=== PATIENT | male | born 1975 | race Caucasian/White ===

== ENCOUNTER 2018-07-04 06:12 | Inpatient (IN) ==
[2018-06-29 16:36] LABS: Basophils # (Auto) 0 K/mcL (0.0-0.3); Basophils % (Auto) 0.4 % (0.0-2.0); Eosinophils # (Auto) 0.2 K/mcL (0.0-0.7); Eosinophils % (Auto) 2.6 % (0.0-7.0); Granulocytes % (Auto) 55.7 % (38.0-78.0); Lymphocytes # (Auto) 2.7 K/mcL (1.5-4.8); Lymphocytes % (Auto) 32.2 % (15.5-49.0); Mean Cell Volume 88.1 fL (80.0-100.0); Mean Corpuscular HGB Conc 32.9 g/dL (31.0-36.0); Monocytes # (Auto) 0.8 K/mcL (0.1-0.9); Monocytes % (Auto) 9.1 % (1.0-12.0); Platelet Count 435 K/mcL (140-440); RBC 5.08 M/mcL (4.50-5.90); Red Cell Distribution Width 13.4 % (11.5-14.5)
[2018-06-29 16:46] LABS: Blood Urea Nitrogen 18 mg/dl (6-20)
[2018-06-29 17:09] LABS: Appearance,Urine CLEAR; Bilirubin,Urine NEG (NEG); Color,Urine YELLOW; Glucose,Urine (UA) NEGATIVE (NEG); Leukocyte Esterase,Urine NEG /uL (NEG); Protein,Urine NEG (NEG); Specific Gravity,Urine 1.019 (1.000-1.035); Urine Blood NEG mg/dL (<0.03); Urobilinogen,Urine NEG (NEG)
[2018-07-04] MEDS ORDERED: CELECOXIB 200 MG CAPSULE PO SCH (07:00)
[2018-07-04] MEDS ORDERED: oxyCODONE 10 MG TAB.ER.12H PO SCH (07:00)
[2018-07-04] MEDS ORDERED: ceFAZolin 2 GM in DEXTROSE 5% IN WATER 50 ML IV SCH (07:00)
[2018-07-04] MEDS ORDERED: PREGABALIN 75 MG CAPSULE PO SCH (07:00)
[2018-07-04] MEDS ORDERED: GENTAMICIN SULFATE 800 MG/20 ML VIAL IR ONE (07:21)
[2018-07-04] MEDS ORDERED: DEXAMETHASONE 10 MG/ML VIAL IV ONE (09:30)
[2018-07-04] MEDS ORDERED: fentaNYL 100 MCG/2 ML VIAL IV ONE ×2 (09:30→14:00)
[2018-07-04] MEDS ORDERED: KETAMINE 100 MG/ML ML IV ONE (09:30)
[2018-07-04] MEDS ORDERED: LIDOCAINE HCL/PF 100 MG/5 ML SYRINGE IV ONE (09:30)
[2018-07-04] MEDS ORDERED: TRANEXAMIC ACID 1,000 MG/10 ML VIAL IV ONE (09:30)
[2018-07-04] MEDS ORDERED: ONDANSETRON 4 MG/2 ML VIAL IV ONE (09:30)
[2018-07-04] MEDS ORDERED: PHENYLEPHRINE 10 MG/ML VIAL IV ONE (09:30)
[2018-07-04] MEDS ORDERED: GLYCOPYRROLATE 0.2 MG/ML VIAL IV ONE (09:30)
[2018-07-04] MEDS ORDERED: VASOPRESSIN 20 UNIT/ML VIAL IV ONE (09:30)
[2018-07-04] MEDS ORDERED: PROPOFOL 200 MG/20 ML VIAL IV ONE (09:30)
[2018-07-04] MEDS ORDERED: MIDAZOLAM 5 MG/5 ML VIAL IV ONE (09:30)
[2018-07-04] MEDS ORDERED: TRANEXAMIC ACID 1,000 MG/10 ML VIAL IV SCH (13:08)
[2018-07-04] MEDS ORDERED: ONDANSETRON 4 MG ODT TABLET SL PRN (13:08)
[2018-07-04] MEDS ORDERED: BISACODYL 10 MG SUPP.RECT PR PRN (13:08)
[2018-07-04] MEDS ORDERED: MAGNESIUM HYDROXIDE 30 ML ORAL.SUSP PO PRN (13:08)
[2018-07-04] MEDS ORDERED: HYDROcodone/APAP 10/325MG TABLET PO PRN (13:08)
[2018-07-04] MEDS ORDERED: FLEETS ADULT ENEMA PR PRN (13:08)
[2018-07-04] MEDS ORDERED: POLYETHYLENE GLYCOL 3350 17 GM PACKET PO PRN (13:08)
[2018-07-04] MEDS ORDERED: BENZOCAINE/MENTHOL 1 LOZENGE PO PRN ×2 (13:08→13:33)
[2018-07-04] MEDS ORDERED: ONDANSETRON 4 MG/2 ML VIAL IV PRN ×2 (13:08→13:33)
[2018-07-04] MEDS ORDERED: ACETAMINOPHEN 325 MG TABLET PO PRN (13:08)
--- NOTE | 2018-07-04 13:08 | Brief Operative Note ---
Date of procedure: 07/04/18 Pre-op diagnosis: left hip osteoarthritis s/p osteotomy for perthes Post-op diagnosis: same Procedure: left total hip arthroplasty, osteotomy, hardware removal Grafts/Implants: Yes Anesthesia: spinal Complications: none Surgeon: Kilo Figueroa Clip Loading Machine Feeder: Marcella Estrada Estimated blood loss (cc): 200 Specimens Removed/Pathology: none sent Condition: stable Disposition: PACU
[2018-07-04] MEDS ORDERED: PROMETHAZINE 25 MG/ML VIAL IV PRN (13:33)
[2018-07-04] MEDS ORDERED: ACETAMINOPHEN 1,000 MG/100 ML BOTTLE IV ONE (13:33)
[2018-07-04] MEDS ORDERED: METHOCARBAMOL 1,000 MG/10 ML VIAL IV PRN (13:33)
[2018-07-04] MEDS ORDERED: FLUMAZENIL 0.1 MG/ML ML IV PRN (13:33)
[2018-07-04] MEDS ORDERED: NALOXONE HCL 0.4 MG/ML VIAL IV PRN (13:33)
[2018-07-04] MEDS ORDERED: IPRATROPIUM/ALBUTEROL 3 ML AMPUL.NEB NEB PRN (13:33)
[2018-07-04] MEDS ORDERED: MEPERIDINE 50 MG/ML INJECTION IM PRN (13:33)
[2018-07-04] MEDS ORDERED: KETOROLAC 30 MG/ML VIAL IV PRN (13:33)
[2018-07-04] MEDS ORDERED: LACTATED RINGERS 250 ML IV PRN (13:33)
[2018-07-04] MEDS ORDERED: HYDROmorphone 2 MG/ML VIAL IV PRN (13:33)
[2018-07-04] MEDS ORDERED: PROMETHAZINE 25 MG/ML VIAL IM PRN (13:33)
[2018-07-04] MEDS ORDERED: MEPERIDINE 25 MG/ML SYRINGE IV PRN (13:33)
[2018-07-04] MEDS ORDERED: LACTATED RINGERS 1,000 ML IV SCH (13:45)
[2018-07-04] MEDS: fentaNYL 100 MCG/2 ML VIAL IV PRN ×4 (13:59→14:08)
[2018-07-04] MEDS: 0.9 % SODIUM CHLORIDE 10 ML SYRINGE IV SCH ×2 (15:04→22:32)
[2018-07-04] MEDS: 0.9 % SODIUM CHLORIDE 1,000 ML IV SCH ×2 (15:45→23:20)
--- NOTE | 2018-07-04 16:08 | XRay Report ---
CLINICAL INFORMATION: Post-Op Total Hip COMPARISON: Preoperative films unavailable. FINDINGS: Left total hip prostheses is anatomically aligned. A hooked sideplate seen over the greater trochanter and lateral cortex of the upper femoral diaphysis which is supported by cerclage wires. Older right total hip prostheses in anatomic alignment. IMPRESSION: Postoperative left total hip films Interpreted and Authenticated by: Kilo Guerra 07/04/18
[2018-07-04] MEDS: ceFAZolin 1 GM VIAL IV SCH (16:46)
--- NOTE | 2018-07-04 16:52 | Operative Note ---
DATE OF OPERATION: 07/04/2018 PREOPERATIVE DIAGNOSES: 1. Left hip Rrhe-Hwvfo-Cgkkarl disease with previous varus proximal femoral osteotomy and retained hardware. 2. Left hip osteoarthritis. 3. Left hip dysplasia. POSTOPERATIVE DIAGNOSES: 1. Left hip Aisv-Pqkex-Gehewkp disease with previous varus proximal femoral osteotomy and retained hardware. 2. Left hip osteoarthritis. 3. Left hip dysplasia. PROCEDURE PERFORMED: 1. Left total hip arthroplasty. 2. Left hip proximal femur osteotomy. 3. Left hip hardware removal. SURGEON: Nathen Figueroa M.D. TECHNICAL AID: Marcella Estrada PA-C. ESTIMATED BLOOD LOSS: 200 mL. DRAINS: None. IMPLANTS: DePuy Pierce Hole Eliminator PS; DePuy [place] Gription acetabular shell 56 mm diameter; DePuy [place] Altrx polyethylene acetabular liner lipped 36 x 56; DePuy Corail cementless femoral stem RENAE-coated revision, 135 degree high offset collared, size 13; DePuy standard trochanteric baseball scout Accord plate 5-hole 125 mm length; DePuy Accord 2.0 mm cable x3. INDICATIONS: The patient is a pleasant 42-year-old male. He has had a previous right hip replacement and done well. The left hip has increasingly become painful over the last 3-6 months and progressively worsened. An MRI and x-rays have confirmed advanced degenerative joint disease. 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 After a long discussion about treatment options, he elected to proceed with a total hip arthroplasty. The risks and benefits were discussed with the patient in detail including, but not limited to, the risks of anesthesia, problems with the heart or lungs related to anesthesia, infection, compromise or injury to the nerves and blood vessels, deep venous thrombosis, pulmonary embolism, pneumonia, continued pain after surgery, worsening pain or symptoms after surgery, swelling, loss of motion, need for repeat surgery, hardware failure, re-tear or failure of repair site, malunion, nonunion, leg length discrepancy, dislocation, and hardware pain requiring future removal. DESCRIPTION OF PROCEDURE: The patient was seen preoperatively where all questions were answered and the correct side and site were identified and marked. The patient was then brought to the operating room and administered anesthetic and given preoperative antibiotics. A timeout was called. The patient was placed in the lateral decubitus position with a [place] frame and all prominences were well padded, and the extremity was prepped and draped in the usual sterile fashion. He was given 2 grams of Ancef and 1 gram of tranexamic acid via intravenous route. A standard posterior approach was created. We dissected the skin and subcutaneous tissue to the deep fascia. The fascia was split in line with the incision and a Charnley retractor was placed. We exposed, tagged and incised the short external rotators and piriformis tendon and retracted them posteriorly to help protect the sciatic nerve which we palpated. We extended our transection through the distal IT band and came down to the plate. The proximal screw was removed in a standard fashion, taking out the bolt, as well as the middle screw. The middle screw was stripped and we were unable to excise. I used an osteotome to break off the head and then we were able to take the remainder of the plate off. I overreamed the broken screw with the hardware removal set. The proximal screw was also removed. We performed a T-capsulotomy and tagged the capsular edges. Prior to dislocating the hip, we set our length and offset gauge from a Steinmann pin in the iliac wing to yanique on the greater trochanter. The hip was then dislocated and femoral neck osteotomy was performed to the presurgical templated level off the lesser trochanter. The head was found to be flattened from previous Meri-Uatff-Pgqffql disease with moderate osteoarthritis. The head was removed. Our attention was next turned towards the acetabulum. Retractors were placed for optimal visualization. A complete labral excision was performed. The capsule was preserved for labral closure. I began reaming using anatomical landmarks with the DePuy Ephrata acetabular system. We medialized the cup and then reamed up to provide a good fill and coverage of the trial. The trial was stable and appropriately positioned and approximately 20 anteversion and 45 degrees of abduction. We impacted the DePuy [place] cup. Osteophytes were removed from around the shell. We placed a trial liner and turned our attention to the femur. We placed retractors for visualization. Internally, we rotated the femur and established intramedullary access. We attempted to gain distal access but the midportion of the osteotomy was quite sclerotic. I attempted to drill past the area of the osteotomy, but because of the previous varus osteotomy we were unable to gain access, and I felt a repeat osteotomy was our best option. We then protected the medial and lateral aspect of the femur and placed a ___ retractor underneath, and we performed an osteotomy through the previous osteotomy in a standard fashion. I did take a wedge cut out of the lateral aspect to reestablish a valgus-type osteotomy to realign the canal. We then placed a trochanteric 5-cable standard baseball scout plate 125 mm length and placed three 2.0 Accord cables in a standard fashion to reestablish our access and produced a valgus force so we could gain intramedullary access. The femoral access was lateralized with a box osteotome and then we reamed up in a standard fashion. We broached using the Compete Corail stem to a standard platform medial lateral rotation with the appropriate revision. We then performed a calcar reaming off the broach. We reamed distally in a standard fashion up to a size 13. We then placed the final implant and locked into place. We trialed different heads and ended up placing a ceramic insert +1.5, 36 mm diameter. Trials were placed to optimize for leg length and stability. We used the leg length and offset guide to confirm our trials. Best stability, length and offset characteristics were attained with these sizes. We thoroughly irrigated with saline and Irrisept. We removed all the trials and impacted a Ephrata Altrx polyethylene acetabular liner lipped 36 mm. We impacted the femoral head, it was in place and then final reduction was performed. Again, good stability, leg length and offset characteristics were noted. We irrigated with 3 liters of antibiotic saline. We closed the capsule with #2 Fiberwire. We closed the iliotibial band with a combination of #2 Stratafix and 0 Vicryl. We closed the subcutaneous tissue and skin in layers out to Dermabond on the skin. A sterile pressure dressing was applied and abduction wedge was applied. All needle and sponge counts were correct. The patient was transferred to the recovery room in stable condition. HARPREET:eliane Job ID: [id number] Doc ID: [id number] Nathen Figueroa MD
[2018-07-04] MEDS: HYDROmorphone 2 MG/ML VIAL IV PRN ×2 (19:32→21:32)
[2018-07-04] MEDS ORDERED: SENNOSIDES 1 TABLET PO SCH (21:00)
[2018-07-04] MEDS: ASPIRIN 325 MG ENTERIC COATED TABLET PO SCH (21:25)
[2018-07-04] MEDS: DOCUSATE SODIUM 100 MG CAPSULE PO SCH (21:25)
[2018-07-04] MEDS: oxyCODONE/APAP 5/325MG TABLET PO PRN (21:32)
[2018-07-05] MEDS: HYDROmorphone 2 MG/ML VIAL IV PRN ×3 (00:24→12:40)
[2018-07-05] MEDS: ceFAZolin 1 GM VIAL IV SCH (00:50)
[2018-07-05] MEDS: oxyCODONE/APAP 5/325MG TABLET PO PRN ×3 (04:44→14:29)
[2018-07-05] MEDS: 0.9 % SODIUM CHLORIDE 10 ML SYRINGE IV SCH (05:11)
--- NOTE | 2018-07-05 06:51 | Discharge Summary ---
Providers - Providers Patient information: Note initiated : 07/05/18 at 6:48 am Service Date, if different from initiated Date: [] Patient: Eladio Mora 42 y/o M admitted on 07/04/18 for Left Total Hip Arthroplasty. Chief Complaint: [POD #1 s/p left BHARGAVI with hardware removal and osteotomy Patient is doing well this morning. Reports minimal pain. Nurses state his pain was difficult to control over night but came down with Dilaudid and Percocet. He had some concerns about weight bearing right away but otherwise has none. Denies CP, SOB, numbness, tingling or calf pain.] Discharge date: 07/05/18 Hospitalization Hospital course: Patient was brought into operating room on 07/05/18 for left BHARGAVI with hardware removal and osteotomy. The surgery went on without complication and the patient was transferred to the [facility] floor for post op care, pain control and observation. He will d/c to home today and follow up in clinic in 10-14 days. Discharge diagnosis: legg calve perthes disease Secondary discharge diagnosis: osteoarthritis of hip Procedures: left total hip arthroplasty with hardware removal and osteotomy Complications: none Exam - Exam Incision healing: Yes Incision draining: No Incision red: No Incision swollen: No Incision inflamed: No Clean and dry: Yes Weight bearing status: as tolerated Range of motion: full foot and ankle Ortho Discharge - BHARGAVI - Patient Instructions Diet: Regular Diet Activity: weight bearing as tolerated Total Hip Protocol: Follow activity instructions as provided by Physical Therapy. Dressing Care: May shower in 2 days, Other (dermabond) - Follow Up Plan Follow Up Appointments: Marcella Estrada PA-C [Physician Meat Wrapper] - 07/19/18 11:00 am Disposition: Home, Self-Care Prognosis: Good Rehab Potential: Good I certify that the patient requires SNF services: No Overall status at discharge: patient is progressing back to baseline - Orders For Discharge Prescriptions: Aspirin [Ecotrin] 325 mg PO BID #60 tab.ec Methocarbamol [Robaxin] 750 mg PO Q8HP PRN #45 tab PRN Reason: Muscle Spasm oxyCODONE/APAP [Percocet 5-325 mg] 1 - 2 tab PO Q4-6HP PRN #60 tab PRN Reason: Pain Level 3-6 Additional Discharge Orders: Physical Therapy at Discharge - BHARGAVI Location: None Selected Walker Location: None Selected Pending Studies Resuscitation Status Full Code Diet Regular Diet Start TueJul 04 1310 Aspirin (Ecotrin) 325 mg PO BID [facility] Last Admin: 07/04/18 21:25 Dose: 325 mg Documented by: KEYANNA Docusate Sodium (Colace) 100 mg PO BID [facility] Last Admin: 07/04/18 21:25 Dose: 100 mg Documented by: KEYANNA Hydromorphone HCl (Dilaudid) 0 mg IV Q1HP PRN PRN Reason: PAIN LEVEL > 6 Last Admin: 07/05/18 00:24 Dose: 1 mg Documented by: Admin: 07/04/18 21:32 Dose: 1 mg Documented by: Admin: 07/04/18 19:32 Dose: 1 mg Documented by: KEYANNA Sodium Chloride (Sodium Chloride 0.9%) 1,000 mls @ 125 mls/hr IV .Q8H [facility] Last Admin: 07/04/18 23:20 Dose: 125 mls/hr Documented by: Infusion: 07/04/18 23:20 Dose: 125 mls/hr Documented by: Admin: 07/04/18 15:45 Dose: 125 mls/hr Documented by: AURELIO Ondansetron HCl (Zofran) 4 mg IV Q4HP PRN PRN Reason: Nausea And Vomiting Last Admin: 07/04/18 17:58 Dose: 4 mg Documented by: AURELIO Oxycodone/Acetaminophen (Percocet 5-325 Mg) 0 tab PO Q4HP PRN PRN Reason: PAIN LEVEL 3-6 Last Admin: 07/05/18 04:44 Dose: 2 tab Documented by: Admin: 07/04/18 21:32 Dose: 2 tab Documented by: KEYANNA Senna (Senokot) 2 tab PO HS [facility] Last Admin: 07/04/18 21:25 Dose: 2 tab Documented by: KEYANNA Sodium Chloride (Saline Flush) 10 ml IV Q8 [facility] Last Admin: 07/05/18 05:11 Dose: Not Given Documented by: Admin: 07/04/18 22:32 Dose: 10 ml Documented by: Admin: 07/04/18 15:04 Dose: Not Given Documented by: AURELIO Shift Summary 07/05/18 03:12 Shift Summary by Anais Sampson a/o x4,s/p left total hip, was a long surgical procedure over 4 hours r/t difficulty removing old hardware,abductor pillow in use, has requested foot pumps be removed, dressing to left hip c/d/i, ice pack on and off through out the night, iv to left arm, ns at 125 cc/hr, has received all of his iv ancef, morphine was not effective for him, med changed to dilaudid , have been giving 1 mg, medicated 3 times and will probably need to be medicated again, also given percocet 10 x2, had diffiuclty voiding at around 1630 he was straight cath with 800 cc return at around mn he still had not voided, scanned bladder showed 681 cc. moore placed to be removed this am, he has been noted to have some sleep apnea, o2 via nc has been in use at 2l/min, lives with his and children and will receive outpatient rehab. Initialized on 07/05/18 03:12 - END OF NOTE
[2018-07-05] MEDS ORDERED: OMEPRAZOLE 20 MG CAPSULE PO SCH (07:30)
[2018-07-05] MEDS: METHOCARBAMOL 750 MG TABLET PO PRN ×2 (07:35→14:29)
[2018-07-05] MEDS ORDERED: FLUoxetine HCL 20 MG CAPSULE PO SCH (09:00)
[2018-07-05] MEDS ORDERED: LISINOPRIL 20 MG TABLET PO SCH (09:00)
[2018-07-05] MEDS: DOCUSATE SODIUM 100 MG CAPSULE PO SCH (09:19)
[2018-07-05] MEDS: ASPIRIN 325 MG ENTERIC COATED TABLET PO SCH (09:19)
[2018-07-05] MEDS: 0.9 % SODIUM CHLORIDE 1,000 ML IV SCH ×2 (11:58→15:27)
== END 2018-07-05 17:35 | disposition home or self-care (01) | DRG 470 ==
LOC: MEDSUR 06:12
PROVIDERS: ADMIT Orthopaedic Surgery Sports Medicine; ATTEND Orthopaedic Surgery Sports Medicine